=== PATIENT | female | born 1955 | race African-American/Black ===

== ENCOUNTER 2022-11-19 13:43 | Emergency (ER) | payer MEDICARE, MEDICAID ==
[~2022-11-19] VITALS: Ht 154.9 cm; Wt 83.5 kg
[2022-11-19 13:54] VITALS: BP 152/92
--- NOTE | 2022-11-19 13:57 | NUR ---
PT PLACED IN BED 09 BY [facility]
--- NOTE | 2022-11-19 14:14 | NUR ---
PT WAS EXAMINED BY ED MD. LAB BEDSIDE TO DRAW BLOOD
[2022-11-19 14:32] LABS: BASOPHILS # (AUTO) 0.1 K/uL (0.00-0.22); BASOPHILS % (AUTO) 0.9 % (0.0-2.0); EOSINOPHILS # (AUTO) 0.3 K/uL (0-0.4); EOSINOPHILS % (AUTO) 2.7 % (0.0-4.0); HEMATOCRIT 46.9 % (36-48); HEMOGLOBIN 15.5 g/dL (12.0-16.0); LYMPHOCYTES # (AUTO) 2.8 K/uL (2.5-16.5); LYMPHOCYTES % (AUTO) 25.9 % (20.5-51.1); MEAN CORPUSCULAR HEMOGLOBIN 27 pg (27-31); MEAN CORPUSCULAR HGB CONC 33 g/dL (33-37); MONOCYTES # (AUTO) 0.6 K/uL (0.8-1.0); MONOCYTES % (AUTO) 5.3 % (1.7-9.3); NEUTROPHILS # (AUTO) 7.1 K/uL (1.8-7.7); NEUTROPHILS % (AUTO) 65.2 % (42.2-75.2); PLATELET COUNT (AUTO) 264 K/uL (140-450); RED BLOOD CELL COUNT(AUTO) 5.72 MIL/uL (4.20-5.40); RED CELL DISTRIBUTION WIDTH 15.8 % (11.6-13.7); WHITE BLOOD COUNT (AUTO) 10.8 K/uL (4.8-10.8)
[2022-11-19 14:48] LABS: ANION GAP 9.7 (8-16); ASPARTATE AMINOTRANSFERASE 23 U/L (15-37); CARBON DIOXIDE 34.6 mmol/L (21-32); CHLORIDE 102 mmol/L (98-107); CREATININE 0.9 mg/dL (0.6-1.3); GFR ARICAN-AMERICAN 80 mL/min (>90); POTASSIUM 4.3 mmol/L (3.5-5.1); SODIUM SERUM 142 mmol/L (136-145); UREA NITROGEN, BLOOD 14 mg/dL (7-18)
[2022-11-19 15:05] LABS: GLUCOSE 122 mg/dL (74-106)
--- NOTE | 2022-11-19 18:00 | NUR ---
FOOD OFFERED PER PT REQUESTED.
--- NOTE | 2022-11-19 18:21 | NUR ---
ED MD BEDSIDE TO TALK PT AGAIN.
--- NOTE | 2022-11-19 18:41 | NUR ---
IV SL 20G ESTABLISHED ON LAC [address]
--- NOTE | 2022-11-19 18:50 | NUR ---
PT WAS DONE THE CT AND SEND BACK TO HER ROOM.
--- NOTE | 2022-11-19 19:25 | NUR ---
Pt up in bed at semi fowlers talking on the phone. pt denies any c/p, n/v, and difficulty breathing. no signs of distress at this time. Needs are met. Safety measures are in place, and pt attached to the awake overnight monitor.
[2022-11-19] MEDS ORDERED: ACET-10509 PO (20:16)
[2022-11-19] MEDS ORDERED: AMOX-1230 PO (20:16)
[2022-11-19] MEDS ORDERED: AZIT250T4 PO (20:16)
[2022-11-19 20:24] VITALS: BP 145/70
--- NOTE | 2022-11-19 20:24 | NUR ---
Patient discharged with v/s stable. Written and verbal after care instructions given and explained. Patient alert, oriented and verbalized understanding of instructions. Ambulatory with steady gait. All questions addressed prior to discharge. ID band removed. Patient advised to follow up with PMD. Rx of Acetaminophen tab, Amoxicillin/Pottasium Clav, and Azithromycin given. Patient educated on indication of medication including possible reaction and side effects. Opportunity to ask questions provided and answered.
--- NOTE | 2022-11-19 21:14 | NUR ---
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
== END 2022-11-19 20:24 | disposition home or self-care (01) ==
LOC: MED 13:43
DX: J18.9 Pneumonia, unspecified organism (principal); R07.9 Chest pain, unspecified; R51.9 Headache, unspecified; I10 Essential (primary) hypertension; Z86.73 Personal history of transient ischemic attack (TIA), and cerebral infarction without residual deficits; Z79.899 Other long term (current) drug therapy; Z79.2 Long term (current) use of antibiotics
CPT/HCPCS: 36415; 70450; 70496; 70498; 71045; 80053; 84484; 85025; 99285; Q0092; Q9967